=== PATIENT | female | born 1990 | race American Indian/Alaskan Native ===

== ENCOUNTER 2016-08-15 23:44 | Emergency (ER) | payer SELFPAY ==
[2016-08-15 23:56] VITALS: BP 123/82
[2016-08-16] MEDS ORDERED: BICILLIN L-A IM ONE (01:18)
[2016-08-16] MEDS ORDERED: MOTRIN ONE (01:18)
[2016-08-16] MEDS ORDERED: DECADRON ONE (01:18)
== END 2016-08-16 02:00 ==
LOC: ED 23:44
DX: J02.9 Acute pharyngitis, unspecified (principal); R50.9 Fever, unspecified; Z53.21 Procedure and treatment not carried out due to patient leaving prior to being seen by health care provider
CPT/HCPCS: 87430; J0561; J1100